=== PATIENT | female | born 1950 | race Caucasian/White ===

== ENCOUNTER 2017-07-01 12:07 | Observation (INO) ==
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
[2017-07-01 14:19] LABS: Basophils % 0.5 %; Eosinophils # 0.5 K/mcL (0.0-0.6); Eosinophils % 6.8 %; Hemoglobin 13.2 g/dL (11.5-15.4); Immature Granulocytes % 0.1 % (0-4); Lymphocytes # 4.3 K/mcL (0.6-4.6); Mean Corpuscular Hemoglobin 28.9 pg (28.0-33.3); Mean Corpuscular Volume 87.7 fL (83.0-100.0); Mean Platelet Volume 8.5 fL (9.4-12.4); Monocytes # 0.5 K/mcL (0.0-1.3); Monocytes % 7.2 %; Platelet Count 291 K/mcL (140-400); Red Blood Count 4.56 M/mcL (3.82-4.97); Red Cell Distribution Width 13.2 % (11.5-14.5); Segmented Neutrophils % 27.4 %
[2017-07-01 14:34] LABS: BUN/Creatinine Ratio 17 (6-26); Blood Urea Nitrogen 15 mg/dL (7-20); Calcium 8.9 mg/dL (8.6-10.8); Carbon Dioxide 28 mEq/L (19-29); Chloride 104 mEq/L (98-109); Glucose 80 mg/dL (70-99); Osmolality,Calculated 294 (280-300); Potassium 4.2 mEq/L (3.5-4.5); Sodium 142 mEq/L (136-145); eGFR For African Americans > 60 (> 60); eGFR For Non-African Americans > 60 (> 60)
[2017-07-01 14:43] LABS: Phenytoin (Dilantin) 25.8 mcg/mL (10.0-20.0)
[2017-07-01 15:19] LABS: Bilirubin,Urine Negative (Negative); Blood,Urine Small (Negative); Clarity,Urine Clear (Clear); Color,Urine Yellow (Yellow); Glucose,Urine (UA) Normal (Normal); Ketones,Urine Negative (Negative); Leukocyte Esterase,Urine Negative (Negative); Nitrite,Urine Negative (Negative); Protein,Urine Negative (Neg-Trace); Specific Gravity,Urine 1.015 (1.010-1.025); Urobilinogen,Urine Normal (Normal)
[2017-07-01 15:26] LABS: Mucus,Urine Few (Few); RBC,Urine 0-3 per hpf (0-3); Renal Epithelial Cells,Urine Few per hpf (None-Few); Squamous Epithelial Cell,Urine Few per lpf (None-Few); WBC,Urine 0-3 per hpf (0-3)
[2017-07-01] MEDS ORDERED: MOM Conc 10 ML UD.LIQ PO PRN (16:36)
[2017-07-01] MEDS ORDERED: Ibuprofen 800 MG TABLET PO PRN (16:36)
[2017-07-01] MEDS ORDERED: Naloxone 0.4 MG/ML INJ IVP PRN (16:36)
[2017-07-01] MEDS ORDERED: Acetaminophen 325 MG TABLET PO PRN (16:36)
[2017-07-01] MEDS ORDERED: Ondansetron 4 MG/2 ML VIAL IVP PRN (16:36)
--- NOTE | 2017-07-01 19:19 | Internal Med History&Physical ---
Date of Encounter: 07/01/17 Time of Encounter: 18:45 Assessment and Plan (1) Disequilibrium Current visit: No Status: Chronic Possibly secondary to Dilantin toxicity. Will hold Dilantin and give IV fluids. Recheck labs in a.m. (2) Dilantin toxicity Current visit: Yes Status: Acute As above Qualifiers: Encounter type: initial encounter Injury intent: accidental or unintentional Qualified Code(s): T42.0X1A - Poisoning by hydantoin derivatives , accidental (unintentional), initial encounter (3) Epilepsy Current visit: No Status: Chronic We will hold Dilantin. Continue phenobarbital. Qualifiers: Epilepsy type: unspecified Intractability: not intractable Status epilepticus: without status epilepticus Qualified Code(s): G40.909 - Epilepsy , unspecified, not intractable, without status epilepticus (4) Hypertension Current visit: No Status: Chronic Continue Cozaar and Lasix. Qualifiers: Hypertension type: essential hypertension Qualified Code(s): I10 - Essential (primary) hypertension Internal Medicine - H&P: HPI Chief complaint: Lightheaded and weak Admitted From: Emergency Dept Plans for Post Hospital Care: Home History of present illness: Ms. Yap is a 66 year old female who came to emergency room stating she had felt lightheaded/off-balance and weak upon arising day. She denies vertigo. She had a similar sensation last evening and went to [facility]. No specific diagnosis was made per her report. She was given meclizine and discharged home. She reports taking 3 meclizine pills without improvement. She came to emergency room today and had additional evaluation done. Her Dilantin level was found to be elevated. She was admitted to [facility] floor for ongoing care needs. She denies nausea vomiting diarrhea dyspnea or pain. Neurologic history is significant for seizures present since childhood with her most recent one being several months ago. She denies large distribution strokes. Past Med Surg Social Fam HX - Past Medical History Medical history: arthritis, coronary artery disease, GERD, hyperlipidemia, hypertension, seizures Psychiatric history: anxiety - Past Surgical History Surgical History: other - Social History Smoking Status: Never smoker Smokeless Tobacco Status: No Alcohol use: none Drug use: none - Family History Father Living Status: Hx Family Neurologic Disorders: Yes (strokes) Internal Medicine - H&P: Meds Cyanocobalamin (Vitamin B-12) [Vitamin B12] 500 mcg PO QMWFSU 05/23/15 [History] Ergocalciferol (VITAMIN D2) [Vitamin D2 (50,000 UNIT)] 50,000 unit PO QWEEK [History] Folic Acid 0.8 mg PO QAM 05/23/15 [History] Furosemide [Lasix] 20 mg PO QAM 05/23/15 [History] Gabapentin [Neurontin] 600 mg PO TID 05/23/15 [History] Losartan [Cozaar] 50 mg PO QAM 05/23/15 [History] Lovastatin [Mevacor] 10 mg PO QAM 05/23/15 [History] [place]-3/Dha/Epa/Fish Oil [Fish Oil [place]-3 EC 1,200 mg] 2 cap PO BID 05/23/15 [ History] PHENobarbital [Phenobarbital] 32.4 mg PO TID 05/23/15 [History] Phenytoin [Dilantin] 100 mg PO TID 05/23/15 [History] Potassium Chloride [Klor-Con Sprinkle] 20 meq PO QAM 05/23/15 [History] Thiamine (B-1) [Vitamin B-1] 100 mg PO DAILY #14 tablet 07/26/15 [Rx] Aspirin 81 mg PO DAILY 02/14/16 [History] Ibuprofen 800 mg PO BID PRN 02/14/16 [History] Ventolin Hfa 90 mcg IH Q4H PRN 02/14/16 [History] Ondansetron HCl [Zofran] 4 mg PO Q6H #15 tablet 02/16/16 [Rx] Pravastatin Sodium 10 mg PO HS 07/01/17 [History] 3 Allergy/AdvReac Type Severity Reaction Status Date / Time Sulfa (Sulfonamide AdvReac Headache Verified 07/01/17 12:28 Antibiotics) All Systems PM: A 10-system review of systems was performed and is negative for pertinent findings except as documented above in the HPI. Review of systems: Gen.: She states her weight has been stable for several months Cardiovascular: She denies HI hypertension heart failure angina DVT or pulmonary embolus Respiratory: She is a lifelong nonsmoker and has no known chronic lung disease GI: She denies disorders of her liver gallbladder or exocrine pancreas : She has been told she has chronic kidney disease and has seen a virtual customer assistant in [place] in the past. She denies other kidney or bladder disorders Neurologic: As per history of present illness Endocrine: She has hyperlipidemia but denies diabetes or thyroid disease Hematology/oncology: She denies blood disorders cancers or anemia Psychiatric: She has anxiety and depression but denies other mental health issues Musk skeletal: She has DJD but denies gout or other bone joint or muscle disorders. - Constitutional Vitals: Temp Pulse Resp BP Pulse Ox 98.0 F 68 96 143/80 16 07/01/17 18:20 07/01/17 18:20 07/01/17 18:20 07/01/17 18:20 07/01/17 18:20 Exam: Gen.: She is a well-developed well-nourished female who appears in no severe distress at present time HEENT: Head is atraumatic and normocephalic. Eyes: EOMI. There is no scleral icterus. Mouth: Mucosa is moist. Neck: Supple and nontender. There is no thyromegaly or adenopathy noted. Heart: Regular without murmurs gallops or ectopics Lungs: No wheezes or crackles are heard. Abdomen: Soft and nontender. No masses or guarding are noted. Extremities: There is no cyanosis edema or clubbing noted. Dorsalis pedis and posterior tibial pulses are 2 over 2 bilaterally. Neurologic: Mental status: She is talkative and a good historian. Cranial nerves: Smile is symmetric. Forehead wrinkles bilaterally. Tongue protrudes midline. EOMI. Motor: There is no pronator drift. Cerebellar: Finger to nose intact bilaterally. Skin: Warm and dry Internal Med - H&P Results - Labs CBC & Chem 7: 07/01/17 14:00 07/01/17 14:00
[2017-07-01] MEDS: PHENobarbital 32.4 MG TABLET PO SCH (20:09)
[2017-07-01] MEDS: Gabapentin 300 MG CAPSULE PO SCH (20:09)
[2017-07-01] MEDS: 0.9 % Sodium Chloride 1,000 ML IVC SCH (20:13)
[2017-07-01] MEDS ORDERED: PRAVASTATIN SODIUM 10 MG PO SCH (21:00)
[2017-07-02 04:40] LABS: Basophils # 0.1 K/mcL (0.0-0.2); Basophils % 0.6 %; Eosinophils # 0.7 K/mcL (0.0-0.6); Eosinophils % 7.3 %; Hematocrit 35.9 % (35.3-44.9); Hemoglobin 11.9 g/dL (11.5-15.4); Immature Granulocytes % 0.1 % (0-4); Lymphocytes # 5.5 K/mcL (0.6-4.6); Lymphocytes % 59.3 %; Mean Corpuscular HGB Conc 33.1 g/dL (31.6-35.5); Mean Corpuscular Hemoglobin 28.7 pg (28.0-33.3); Mean Corpuscular Volume 86.7 fL (83.0-100.0); Mean Platelet Volume 9.2 fL (9.4-12.4); Monocytes # 0.6 K/mcL (0.0-1.3); Monocytes % 6.4 %; Neutrophils # 2.4 K/mcL (1.6-8.9); Platelet Count 276 K/mcL (140-400); Red Blood Count 4.14 M/mcL (3.82-4.97); Red Cell Distribution Width 13.2 % (11.5-14.5); Segmented Neutrophils % 26.3 %
[2017-07-02 04:57] LABS: Alanine Aminotransferase 15 Units/L (0-55); Albumin 3.1 g/dL (3.5-5.0); Alkaline Phosphatase 131 Units/L (38-126); Aspartate Amino Transferase 15 Units/L (5-34); BUN/Creatinine Ratio 23 (6-26); Bilirubin,Total < 0.1 mg/dL (0.2-1.2); Blood Urea Nitrogen 18 mg/dL (7-20); Calcium 8.3 mg/dL (8.6-10.8); Carbon Dioxide 24 mEq/L (19-29); Chloride 107 mEq/L (98-109); Glucose 87 mg/dL (70-99); Osmolality,Calculated 293 (280-300); Potassium 3.7 mEq/L (3.5-4.5); Sodium 141 mEq/L (136-145); Total Protein 6.1 g/dL (6.0-8.3); eGFR For African Americans > 60 (> 60); eGFR For Non-African Americans > 60 (> 60)
[2017-07-02 05:04] LABS: Phenytoin (Dilantin) 23.4 mcg/mL (10.0-20.0)
[2017-07-02] MEDS: 0.9 % Sodium Chloride 1,000 ML IVC SCH (06:28)
[2017-07-02] MEDS: PHENobarbital 32.4 MG TABLET PO SCH (08:04)
[2017-07-02] MEDS: Gabapentin 300 MG CAPSULE PO SCH (08:04)
[2017-07-02] MEDS ORDERED: Folic Acid 1 MG TABLET PO SCH (09:00)
[2017-07-02] MEDS ORDERED: Furosemide 20 MG TABLET PO SCH (09:00)
[2017-07-02] MEDS ORDERED: Aspirin 81 MG TAB.CHEW PO SCH (09:00)
[2017-07-02] MEDS ORDERED: Thiamine (B-1) 100 MG TABLET PO SCH (09:00)
[2017-07-02 10:14] VITALS: BP 130/77
--- NOTE | 2017-07-02 10:58 | Discharge Summary ---
Date of Encounter: 07/02/17 Time of Encounter: 10:50 - Discharge Diagnosis (1) Dilantin toxicity Priority: Primary Status: Acute Qualifiers: Encounter type: initial encounter Injury intent: accidental or unintentional Qualified Code(s): T42.0X1A - Poisoning by hydantoin derivatives , accidental (unintentional), initial encounter (2) Disequilibrium Priority: Secondary Status: Chronic (3) Epilepsy Priority: Secondary Status: Chronic Qualifiers: Epilepsy type: unspecified Intractability: not intractable Status epilepticus: without status epilepticus Qualified Code(s): G40.909 - Epilepsy , unspecified, not intractable, without status epilepticus (4) Hypertension Priority: Secondary Status: Chronic Qualifiers: Hypertension type: essential hypertension Qualified Code(s): I10 - Essential (primary) hypertension - Discharge Medications Home Medications: Cyanocobalamin (Vitamin B-12) [Vitamin B12] 500 mcg PO QMWFSU 05/23/15 [History] Ergocalciferol (VITAMIN D2) [Vitamin D2 (50,000 UNIT)] 50,000 unit PO QWEEK [History] Folic Acid 0.8 mg PO QAM 05/23/15 [History] Furosemide [Lasix] 20 mg PO QAM 05/23/15 [History] Gabapentin [Neurontin] 600 mg PO TID 05/23/15 [History] Losartan [Cozaar] 50 mg PO QAM 05/23/15 [History] Lovastatin [Mevacor] 10 mg PO QAM 05/23/15 [History] [place]-3/Dha/Epa/Fish Oil [Fish Oil [place]-3 EC 1,200 mg] 2 cap PO BID 05/23/15 [ History] PHENobarbital [Phenobarbital] 32.4 mg PO TID 05/23/15 [History] Phenytoin [Dilantin] 100 mg PO TID 05/23/15 [History] Potassium Chloride [Klor-Con Sprinkle] 20 meq PO QAM 05/23/15 [History] Thiamine (B-1) [Vitamin B-1] 100 mg PO DAILY #14 tablet 07/26/15 [Rx] Aspirin 81 mg PO DAILY 02/14/16 [History] Ibuprofen 800 mg PO BID PRN 02/14/16 [History] Ventolin Hfa 90 mcg IH Q4H PRN 02/14/16 [History] Ondansetron HCl [Zofran] 4 mg PO Q6H #15 tablet 02/16/16 [Rx] Pravastatin Sodium 10 mg PO HS 07/01/17 [History] Allergies/Adverse Reactions: 3 Allergy/AdvReac Type Severity Reaction Status Date / Time Sulfa (Sulfonamide AdvReac Headache Verified 07/01/17 12:28 Antibiotics) Date of admission: 07/01/17 15:39 Primary care physician: Kelvin Alvarado DO - Patient Status Disposition: Home, Self-Care Condition: Fair Functional capacity at discharge: independent ambulation Overall status at discharge: patient is progressing back to baseline - Discharge Instructions Follow Up With: Kelvin Alvarado DO [Primary Care Provider] - 1 week - Diet and Activity Activity: resume usual activities as tolerated Diet: advance to your usual diet Hospital course: Ms. Yap is a 66 year old female who came to emergency room stating she had felt lightheaded/off-balance and weak upon arising day. She denies vertigo. She had a similar sensation last evening and went to [facility]. No specific diagnosis was made per her report. She was given meclizine and discharged home. She reports taking 3 meclizine pills without improvement. She came to emergency room today and had additional evaluation done. Her Dilantin level was found to be elevated. She was admitted to [facility] for ongoing care needs. Initial orders were written by the emergency room physician. I saw her on July 01 and performed the history and physical. Dilantin was held and she was given IV fluids. She was asymptomatic when I saw her on July 02 and felt stable for discharge home. Her Dilantin level had decreased to 23.4. She will remain off Dilantin today and resume a dose of 300 mg daily tomorrow. (Her home dose had been 375 [?] mg daily.) She will follow with her PCP Dr. Kelvin Alvarado within 1 week. - Time Spent with Patient Total time spent providing and/or coordinating discharge services: - Constitutional Vitals: Temp Pulse Resp BP Pulse Ox 97.6 F 66 16 130/77 93 07/02/17 10:12 07/02/17 10:12 07/02/17 10:12 07/02/17 10:12 07/02/17 10:12
--- NOTE | 2017-07-02 12:18 | Physician Discharge Referral ---
Home Health/Hosp Referral Info Transfer to: Home Health Attending Provider: Nik Provider in Charge Post Discharge: PCP (Kelvin Alvarado D.O.) - Diagnosis (1) Dilantin toxicity Priority: Primary Status: Acute (2) Disequilibrium Priority: Secondary Status: Chronic (3) Epilepsy Priority: Secondary Status: Chronic (4) Hypertension Priority: Secondary Status: Chronic - Respiratory Orders Smoking Cessation: Smoking cessation has been advised. For more information, call the [place] Tobacco Quit Line at 6-016-THTN-NOW. - Diet/Nutrition Diet/Nutrition Orders: Regular - Activity Activity Orders: Ambulate - Services Needed Following services are medically necessary services: Nursing, Home Health Aide, Physical Therapy, Occupational Therapy - Transfer Medications Home Medications: Cyanocobalamin (Vitamin B-12) [Vitamin B12] 500 mcg PO QMWFSU 05/23/15 [History] Ergocalciferol (VITAMIN D2) [Vitamin D2 (50,000 UNIT)] 50,000 unit PO QWEEK [History] Folic Acid 0.8 mg PO QAM 05/23/15 [History] Furosemide [Lasix] 20 mg PO QAM 05/23/15 [History] Gabapentin [Neurontin] 600 mg PO TID 05/23/15 [History] Losartan [Cozaar] 50 mg PO QAM 05/23/15 [History] Lovastatin [Mevacor] 10 mg PO QAM 05/23/15 [History] [place]-3/Dha/Epa/Fish Oil [Fish Oil [place]-3 EC 1,200 mg] 2 cap PO BID 05/23/15 [ History] PHENobarbital [Phenobarbital] 32.4 mg PO TID 05/23/15 [History] Phenytoin [Dilantin] 100 mg PO TID 05/23/15 [History] Potassium Chloride [Klor-Con Sprinkle] 20 meq PO QAM 05/23/15 [History] Thiamine (B-1) [Vitamin B-1] 100 mg PO DAILY #14 tablet 07/26/15 [Rx] Aspirin 81 mg PO DAILY 02/14/16 [History] Ibuprofen 800 mg PO BID PRN 02/14/16 [History] Ventolin Hfa 90 mcg IH Q4H PRN 02/14/16 [History] Ondansetron HCl [Zofran] 4 mg PO Q6H #15 tablet 02/16/16 [Rx] Pravastatin Sodium 10 mg PO HS 07/01/17 [History] Allergies/Adverse Reactions: 3 Allergy/AdvReac Type Severity Reaction Status Date / Time Sulfa (Sulfonamide AdvReac Headache Verified 07/01/17 12:28 Antibiotics) Certification: Further, I certify that my clinical findings support that this patient is homebound (i.e. absences from home require considerable and taxing effort and are for medical reasons or sikhism services or infrequently or short duration when for other reasons) because: Homebound Reason: Leaving home requires considerable and taxing effort due to condition (Disequilibrium secondary to Dilantin toxicity with impaired mobility. ) Attestation: My signature below is to certify that this patient is under my care and that I, or nurse practitioner, or a physician's music assistant working with me, has a face-to -face encounter with this patient.
--- NOTE | 2017-07-02 20:16 | Electrocardiograph Report ---
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
== END 2017-07-02 13:15 | disposition home or self-care (01) ==
LOC: EMEROOPIK 12:07 → INPPIK 12:07
PROVIDERS: ADMIT Internal Medicine; ATTEND Internal Medicine

== ENCOUNTER 2018-09-02 22:14 | Observation (INO) ==
[2018-09-02] MEDS ORDERED: Ketorolac 30 MG/ML VIAL IVP ONE (23:15)
[2018-09-02] MEDS ORDERED: Metoclopramide 10 MG/2 ML VIAL IVP ONE (23:15)
--- NOTE | 2018-09-03 00:26 | Emergency Department Note ---
Disposition Clinical Impression: Intractable migraine Qualifiers: Migraine type: unspecified Status migrainosus presence: with status migrainosus Qualified Code(s): G43.911 - Migraine, unspecified, intractable, with status migrainosus Disposition: Admitted As Inpatient Condition: Fair Referrals: Kelvin Alvarado DO [Primary Care Provider] - Forms: Work/School Release, ED Satisfaction Letter Time of Disposition: 01:37 Headache HPI - General Chief Complaint: ED Headache Stated Complaint: HEADACHE/HIGH BP Time Seen by Provider: 09/02/18 23:07 Source: patient Mode of arrival: private vehicle Limitations: no limitations Nursing Notes Reviewed: Yes Vital Signs Reviewed: Yes - History of Present Illness Pt Subjective Complaint: headache Onset (ago): week(s) (One-week) Onset description: gradual, at rest Location: frontal, occipital Pain Severity: severe Pain Scale: 7 Quality: throbbing, similar to previous headaches Improves with: nothing Worsens with: light, noise Context: occurred at rest Associated symptoms: Reports: nausea, photophobia. Denies: vision changes Treatments prior to arrival: other (Saw PCP was given a prescription for Fioricet and took it and it helped but then it wore off she had come in here.) - Related Data Home Medications Medication Instructions Recorded Confirmed Cyanocobalamin (Vitamin B-12) 500 mcg PO QMWFSU 05/23/15 09/02/18 [Vitamin B12] Furosemide [Lasix] 20 mg PO QAM 05/23/15 09/02/18 Gabapentin [Neurontin] 600 mg PO TID 05/23/15 09/02/18 Losartan [Cozaar] 50 mg PO QAM 05/23/15 09/02/18 Maxwell-3/Dha/Epa/Fish Oil [Fish Oil 2 cap PO BID 05/23/15 09/02/18 Maxwell-3 EC 1,200 mg] PHENobarbital [Phenobarbital] 32.4 mg PO TID 05/23/15 09/02/18 Phenytoin [Dilantin] 100 mg PO TID 05/23/15 09/02/18 Potassium Chloride [Klor-Con 20 meq PO QAM 05/23/15 09/02/18 Sprinkle] Aspirin 81 mg PO DAILY 02/14/16 09/02/18 Ibuprofen 800 mg PO BID PRN 02/14/16 09/02/18 Pravastatin Sodium 10 mg PO HS 01/08/18 03/12/19 Docusate [Colace] 100 mg PO BID 02/20/18 09/02/18 Esomeprazole Magnesium [Nexium] 40 mg PO DAILY 02/20/18 09/02/18 Loratadine [Claritin] 10 mg PO DAILY 02/20/18 09/02/18 rOPINIRole [Requip] 0.25 mg PO HS 02/20/18 09/02/18 Acetaminophen/Butalbital/Caffe 1 each PO Q6HR 09/02/18 09/02/18 [Fioricet] Previous Rx's Medication Instructions Recorded Thiamine (B-1) [Vitamin B-1] 100 mg PO DAILY #14 tablet 07/26/15 Allergies Allergy/AdvReac Type Severity Reaction Status Date / Time Sulfa (Sulfonamide AdvReac Headache Verified 09/02/18 22:16 Antibiotics) All systems ED: reviewed and negative except as stated. Constitutional: Denies: fever, chills Eyes: Denies: eye pain, vision change ENT ED: Denies: ear pain, throat pain, congestion Cardiovascular: Denies: chest pain, palpitations Respiratory: Denies: cough, dyspnea, wheezes Gastrointestinal: Reports: nausea. Denies: abdominal pain, vomiting, diarrhea Musculoskeletal: Denies: back pain Integumentary: Denies: rash Neurological: Reports: headache. Denies: weakness, numbness, paresthesias Headache PMH - Past Medical History Medical history: Reports: arthritis, GERD, hyperlipidemia, hypertension, seizures, other Female Surgical History: Reports: orthopedic, other (Left foot, pelvic fixation), other (Tonsillectomy) Psychiatric history: Reports: anxiety PATIENT BILLER history: Reports: bilateral tubal ligation - Social History Smoking Status: Never smoker Alcohol use: Reports: none Drug use: Reports: none Physical Exam - General Limitations: no limitations General appearance: alert, in no apparent distress - Head Head exam: atraumatic, normocephalic, normal inspection - Eye Eye exam: Present: normal appearance, PERRL, EOMI, other (Funduscopic examination is normal bilaterally.). Absent: scleral icterus, conjunctival injection - ENT ENT exam: normal exam, normal oropharynx, mucous membranes moist, TM's normal bilaterally, normal external ear exam - Neck Neck exam: Present: normal inspection, full ROM. Absent: tenderness, meningismus - Chest Chest inspection: Present: normal inspection, symmetric chest wall rise. Absent: tenderness - Respiratory Respiratory exam: Present: normal lung sounds bilaterally. Absent: respiratory distress, wheezes - Cardiovascular Cardiovascular exam: Present: regular rate, normal rhythm, normal heart sounds - Abdominal Exam Abdominal exam: Present: soft, Non-Tender, normal bowel sounds - Extremities Exam Extremities exam: Present: normal inspection. Absent: pedal edema - Neurological Exam Neurological exam: Present: alert, oriented X3, CN II-XII intact. Absent: motor sensory deficit - Psychiatric Psychiatric exam: Present: normal affect, normal mood - Skin Skin exam: Present: warm, dry. Absent: rash Course Course Narrative: Patient presents with a headache that is similar to previous headaches except that this was been going on for a week. She had headaches in the past that are going on for a week or more but its been a while. She said headaches nonstop when she was younger. She says she still has a headache pretty much every day. She denies having been sick prior to onset of this headache. She seen her PCP for already and did not get any relief with the Fioricet she was prescribed. Patient is not describing to me any infectious disease symptoms. Story and examination, including neurologic examination and neck exam, are not indicative of nuchal rigidity or subarachnoid hemorrhage or meningitis. I suspect this is migraine with tension component given the overall story and exam. I will get a CT of the head and we will give the patient the migraine cocktail. Disposition will be based on diagnostic results and reevaluation. - Reevaluation(s) Reevaluation #1: CT the head was negative. I went in the room to recheck the patient and she would had just received her medications after having come back from CT scan. Premedication blood pressure was 140 systolic. Mental status is fine. Neurologic examination is fine. We will see how the medications affect her headache. Time: 00:28 Reevaluation #2: Patient's headache really is no better. She has history of chronic refractory migraines requiring admission in the past. Nothing about this current episode sounds like an infectious problem or brain bleed. Last time she had the same presentation to did extensive workup then including spinal tap and imaging studies and they were all negative. Her CT scan is normal here today. I am going to go ahead and admit her to the hospital because she is uncomfortable going home and family members uncomfortable taking her home and I quite frankly had not gotten adequate control of her headache with the medications review so far. I spoke with the hospitalist and he accepted her for admission. Time: 01:36 Vital Signs Temperature 98.2 F 09/02/18 22:19 Pulse Rate 67 09/02/18 22:19 Respiratory Rate 20 09/02/18 22:19 Blood Pressure 121/104 09/02/18 22:19 O2 Sat by Pulse Oximetry 95 09/02/18 22:19 Temperature 98.9 F 09/03/18 01:32 Pulse Rate 114 09/03/18 01:32 Respiratory Rate 24 09/03/18 01:32 Blood Pressure 156/89 09/03/18 01:32 O2 Sat by Pulse Oximetry 90 09/03/18 01:32 Oxygen Delivery Oxygen Delivery Nasal Cannula Headache - Radiology Data Radiology results reviewed: Yes I reviewed the patient's radiology results.
[2018-09-03] MEDS ORDERED: 0.9 % Sodium Chloride 1,000 ML IVC ONE (01:37)
[2018-09-03 02:10] LABS: Basophils % 0.4 %; Eosinophils # 0.3 K/mcL (0.0-0.6); Eosinophils % 2.7 %; Hematocrit 38.9 % (35.3-44.9); Immature Granulocytes % 0.1 % (0-4); Lymphocytes # 4.8 K/mcL (0.6-4.6); Lymphocytes % 50.1 %; Mean Corpuscular HGB Conc 33.4 g/dL (31.6-35.5); Mean Corpuscular Hemoglobin 29.3 pg (28.0-33.3); Mean Corpuscular Volume 87.6 fL (83.0-100.0); Monocytes # 0.5 K/mcL (0.0-1.3); Monocytes % 5.6 %; Platelet Count 255 K/mcL (140-400); Red Blood Count 4.44 M/mcL (3.82-4.97); Red Cell Distribution Width 13.2 % (11.5-14.5); Segmented Neutrophils % 41.1 %
[2018-09-03 02:29] LABS: Blood Urea Nitrogen 13 mg/dL (8-23); Carbon Dioxide 27 mEq/L (23-29); Chloride 103 mEq/L (98-107); Potassium 3.6 mEq/L (3.5-5.1); Sodium 138 mEq/L (136-145)
[2018-09-03 02:30] LABS: BUN/Creatinine Ratio 17 (6-26); Calcium 8.6 mg/dL (8.6-10.3); Glucose 157 mg/dL (70-105); Osmolality,Calculated 289 (280-300); eGFR For Non-African Americans > 60 (> 60)
[2018-09-03] MEDS ORDERED: Ondansetron 4 MG/2 ML VIAL IVP PRN (03:40)
[2018-09-03] MEDS ORDERED: Naloxone 0.4 MG/ML INJ IVP PRN (03:40)
[2018-09-03] MEDS: 0.9 % Sodium Chloride 1,000 ML IVC SCH ×2 (04:04→13:53)
[2018-09-03] MEDS: *HR* OxyCODONE Immed Rel 5 MG TABLET PO PRN ×2 (06:32→13:51)
[2018-09-03 06:48] VITALS: BP 145/77
[2018-09-03] MEDS: PHENobarbital 32.4 MG TABLET PO SCH ×2 (08:29→13:51)
[2018-09-03] MEDS: Gabapentin 300 MG CAPSULE PO SCH ×2 (08:29→13:52)
[2018-09-03] MEDS ORDERED: Aspirin 81 MG TAB.CHEW PO SCH (09:00)
[2018-09-03] MEDS ORDERED: Loratadine 10 MG TABLET PO SCH (09:00)
[2018-09-03] MEDS ORDERED: *HR* HYDROcodone/Acet 5/325 mg TABLET PO ONE (11:00)
[2018-09-03] MEDS ORDERED: MOM Conc 10 ML UD.LIQ PO ONE (11:41)
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
--- NOTE | 2018-09-03 16:47 | Discharge Summary ---
Date of Encounter: 09/03/18 Time of Encounter: 15:50 - Discharge Diagnosis (1) Intractable migraine Priority: Primary Status: Acute Qualifiers: Migraine type: unspecified Status migrainosus presence: with status migrainosus Qualified Code(s): G43.911 - Migraine, unspecified, intractable, with status migrainosus Hospital course: Ms. Yap is a 67 year old female who came to emergency room complaining of migraine headache onset 07/30/2018. She denies vomiting but had photophobia. She received Fioricet from her PCP office on August 04 which was minimally effective. She came to emergency room and was admitted to [facility] for ongoing care needs. Initial orders were written by the emergency room physician. I saw her on September 03 and performed a history physical and discharge. When I saw her she stated she felt improved. She denied any vomiting and stated she did not feel nauseated. She had been been able to ambulate to the bathroom with minimal assistance. I felt she was stable for discharge home. She will be given a prescription for 12 Ultram 100 mg tabs to take 4 times a day as needed. She will follow with her PCP Dr. Kelvin Alvarado within 1 week and with her neurologist Dr. Avalos as directed. - Time Spent with Patient Total time spent providing and/or coordinating discharge services: - Discharge Medications Prescriptions: New Tramadol HCl [Tramadol HCl ER] 100 mg PO Q6H PRN 3 Days #12 tab.er.24h PRN Reason: Headache Continue Thiamine (B-1) [Vitamin B-1] 100 mg PO DAILY #14 tablet Ibuprofen 800 mg PO BID PRN PRN Reason: Analgesia Aspirin 81 mg PO DAILY Gabapentin [Neurontin] 600 mg PO TID Phenytoin [Dilantin] 100 mg PO TID PHENobarbital [Phenobarbital] 32.4 mg PO TID Losartan [Cozaar] 50 mg PO QAM Furosemide [Lasix] 20 mg PO QAM Potassium Chloride [Klor-Con Sprinkle] 20 meq PO QAM Dover-3/Dha/Epa/Fish Oil [Fish Oil Dover-3 EC 1,200 mg] 2 cap PO BID Cyanocobalamin (Vitamin B-12) [Vitamin B12] 500 mcg PO QMWFSU Pravastatin Sodium 10 mg PO HS Loratadine [Claritin] 10 mg PO DAILY Docusate [Colace] 100 mg PO BID rOPINIRole [Requip] 0.25 mg PO HS Esomeprazole Magnesium [Nexium] 40 mg PO DAILY Acetaminophen/Butalbital/Caffe [Fioricet] 1 each PO Q6HR Home Medications: Cyanocobalamin (Vitamin B-12) [Vitamin B12] 500 mcg PO QMWFSU 05/23/15 [History] Furosemide [Lasix] 20 mg PO QAM 05/23/15 [History] Gabapentin [Neurontin] 600 mg PO TID 05/23/15 [History] Losartan [Cozaar] 50 mg PO QAM 05/23/15 [History] Dover-3/Dha/Epa/Fish Oil [Fish Oil Dover-3 EC 1,200 mg] 2 cap PO BID 05/23/15 [History] PHENobarbital [Phenobarbital] 32.4 mg PO TID 05/23/15 [History] Phenytoin [Dilantin] 100 mg PO TID 05/23/15 [History] Potassium Chloride [Klor-Con Sprinkle] 20 meq PO QAM 05/23/15 [History] Thiamine (B-1) [Vitamin B-1] 100 mg PO DAILY #14 tablet 07/26/15 [Rx] Aspirin 81 mg PO DAILY 02/14/16 [History] Ibuprofen 800 mg PO BID PRN 02/14/16 [History] Pravastatin Sodium 10 mg PO HS 07/01/17 [History] Docusate [Colace] 100 mg PO BID 02/20/18 [History] Esomeprazole Magnesium [Nexium] 40 mg PO DAILY 02/20/18 [History] Loratadine [Claritin] 10 mg PO DAILY 02/20/18 [History] rOPINIRole [Requip] 0.25 mg PO HS 02/20/18 [History] Acetaminophen/Butalbital/Caffe [Fioricet] 1 each PO Q6HR 09/02/18 [History] Tramadol HCl [Tramadol HCl ER] 100 mg PO Q6H PRN 3 Days #12 tab.er.24h 09/03/18 [Rx] Allergies/Adverse Reactions: Allergy/AdvReac Type Severity Reaction Status Date / Time Sulfa (Sulfonamide AdvReac Headache Verified 09/02/18 22:16 Antibiotics) Date of admission: 09/03/18 02:44 Primary care physician: Kelvin Alvarado, DO - Constitutional Vitals: Temp Pulse Resp BP Pulse Ox 98.1 F 86 16 145/77 97 09/03/18 06:46 09/03/18 06:46 09/03/18 06:46 09/03/18 06:46 09/03/18 06:46 - Patient Status Disposition: Home, Self-Care Condition: Fair - Discharge Instructions Follow Up With: Kelvin Alvarado DO [Primary Care Provider] - 1 week - Diet and Activity Activity: resume usual activities as tolerated Diet: advance to your usual diet
== END 2018-09-03 18:14 | disposition home or self-care (01) ==
LOC: EMEROOPIK 22:14 → INPPIK 22:14
PROVIDERS: ADMIT Internal Medicine; ATTEND Internal Medicine

== ENCOUNTER 2021-03-21 14:49 | Observation (INO) ==
[2021-03-21 15:13] LABS: Basophils % 0.4 %; Eosinophils # 0.4 K/mcL (0.0-0.6); Eosinophils % 4.3 %; Hematocrit 40.6 % (35.3-44.9); Hemoglobin 13.3 g/dL (11.5-15.4); Immature Granulocytes % 0.1 % (0-4); Lymphocytes # 4.9 K/mcL (0.6-4.6); Lymphocytes % 48.7 %; Mean Corpuscular HGB Conc 32.8 g/dL (31.6-35.5); Mean Corpuscular Hemoglobin 29.1 pg (28.0-33.3); Mean Corpuscular Volume 88.8 fL (83.0-100.0); Mean Platelet Volume 8.8 fL (9.4-12.4); Monocytes # 0.7 K/mcL (0.0-1.3); Monocytes % 7.1 %; Neutrophils # 3.9 K/mcL (1.6-8.9); Platelet Count 271 K/mcL (140-400); Red Blood Count 4.57 M/mcL (3.82-4.97); Red Cell Distribution Width 13.7 % (11.5-14.5); Segmented Neutrophils % 39.4 %
[2021-03-21 15:21] LABS: INR 1.2
[2021-03-21 15:31] LABS: Alanine Aminotransferase 12 Units/L (7-52); Albumin 4.3 g/dL (3.5-5.7); Albumin/Globulin Ratio 1.4 (1.1-2.2); Alkaline Phosphatase 130 Units/L (34-104); Aspartate Amino Transferase 12 Units/L (13-39); BUN/Creatinine Ratio 16 (6-26); Bilirubin,Total 0.3 mg/dL (0.3-1.0); Blood Urea Nitrogen 16 mg/dL (8-23); Calcium 8.8 mg/dL (8.6-10.3); Carbon Dioxide 28 mEq/L (23-29); Chloride 102 mEq/L (98-107); Glucose 90 mg/dL (70-105); Osmolality,Calculated 289 (280-300); Potassium 4.1 mEq/L (3.5-5.1); Sodium 139 mEq/L (136-145); Total Protein 7.3 g/dL (6.4-8.9); eGFR For African Americans > 60 (> 60); eGFR For Non-African Americans 54 (> 60)
[2021-03-21 15:33] LABS: Troponin I < 0.03 ng/mL (< 0.04)
[2021-03-21] MEDS ORDERED: Ondansetron 4 MG/2 ML VIAL IVP PRN (16:28)
[2021-03-21] MEDS ORDERED: Acetaminophen 325 MG TABLET PO PRN (16:28)
[2021-03-21] MEDS ORDERED: Naloxone 0.4 MG/ML INJ IVP PRN (16:28)
[2021-03-21] MEDS ORDERED: Isovue-370 500 ML BOTTLE IVP ONE (16:36)
[2021-03-21] MEDS ORDERED: [UNRECOGNIZED DRUG - OTHER] PO SCH (21:00)
[2021-03-21] MEDS: Gabapentin 400 MG CAPSULE PO SCH (21:00)
[2021-03-21] MEDS ORDERED: OMEGA PO SCH (21:00)
[2021-03-21] MEDS: rOPINIRole 0.25 MG TABLET PO SCH (21:00)
[2021-03-21] MEDS ORDERED: FATTY ACIDS PO SCH (21:00)
[2021-03-21] MEDS ORDERED: FISH OIL PO SCH (21:00)
[2021-03-21] MEDS: PHENobarbitaL 32.4 MG TABLET PO SCH (21:01)
[2021-03-22 06:40] LABS: Hemoglobin 13.1 g/dL (11.5-15.4); Mean Corpuscular HGB Conc 32.8 g/dL (31.6-35.5); Mean Corpuscular Hemoglobin 28.9 pg (28.0-33.3); Mean Corpuscular Volume 88.1 fL (83.0-100.0); Mean Platelet Volume 9.2 fL (9.4-12.4); Platelet Count 269 K/mcL (140-400); Red Blood Count 4.54 M/mcL (3.82-4.97); Red Cell Distribution Width 13.9 % (11.5-14.5); White Blood Count 8.9 K/mcL (4.3-11.1)
[2021-03-22 07:05] LABS: BUN/Creatinine Ratio 20 (6-26); Blood Urea Nitrogen 17 mg/dL (8-23); Calcium 8.8 mg/dL (8.6-10.3); Carbon Dioxide 31 mEq/L (23-29); Chloride 102 mEq/L (98-107); Chol/HDL Ratio 3.7 (0-4.9); Cholesterol 162 mg/dL (< 200); Glucose 90 mg/dL (70-105); HDL Cholesterol 44 mg/dL (40-59); LDL Cholesterol,Calculated 83 mg/dL (< 100); Magnesium 1.7 mg/dL (1.6-2.6); Osmolality,Calculated 293 (280-300); Potassium 3.6 mEq/L (3.5-5.1); Sodium 141 mEq/L (136-145); Triglycerides 173 mg/dL (< 150); eGFR For African Americans > 60 (> 60); eGFR For Non-African Americans > 60 (> 60)
[2021-03-22] MEDS: rOPINIRole 0.25 MG TABLET PO SCH (08:54)
[2021-03-22] MEDS: Gabapentin 400 MG CAPSULE PO SCH (08:55)
[2021-03-22] MEDS: PHENobarbitaL 32.4 MG TABLET PO SCH (08:56)
[2021-03-22] MEDS ORDERED: Cyanocobalamin (B-12) 1,000 MCG TABLET PO SCH (09:00)
[2021-03-22] MEDS ORDERED: Aspirin Enteric Coated 81 MG Tablet PO SCH (09:00)
[2021-03-22] MEDS ORDERED: Furosemide 20 MG TABLET PO SCH (09:00)
[2021-03-22 15:09] VITALS: BP 130/68; PULSE 62; RESP 18; TEMP 98.1; O2SAT 95
== END 2021-03-22 17:22 | disposition home health service (06) ==
LOC: EMEROOPIK 14:49 → INPPIK 14:49
PROVIDERS: ADMIT Internal Medicine; ATTEND Internal Medicine